=== PATIENT | female | born 1985 | race Caucasian/White ===

== ENCOUNTER 2024-08-16 00:02 | Day surgery (SDC) | payer OTHER, SELFPAY ==
[2024-08-05 16:14] VITALS: BMI 20.9
--- NOTE | 2024-08-05 16:31 | PC.NURSE ---
Report to the Outpatient Waiting Room, entrance under the green pavilion located off [facility], at 0830 on 08-16-24. Planned Procedure Time: 1030.? Time changes happen often and if your time is changed the preop area will call you the afternoon before. - You and your visitor will be asked to self-screen and do not enter if you have any COVID symptoms. Please call surgeon if you need to reschedule. - A mask is optional within the hospital at this time. Patients may have clear liquids (water, carbonated beverages, clear teas, apple juice) until 3 hours prior to surgery with a maximum of 20 ounces. 0730 - No food from midnight until time of surgery and no smoking, or chewing tobacco (or any form of nicotine). No chewing gum, candy or mints. - Infants may have breast milk until 4 hours before surgery, formula 6 hours prior to surgery. - Children will be allowed to drink immediately following surgery.? If applicable, please bring a bottle or sippy cup to assist with drinking. Juice, water, soda, and popsicles are readily available.? For infants on formula, please bring formula the day of surgery.? Pacifiers are allowed. Take only the following medications with a SIP of water on the morning of surgery: control DO NOT STOP ANY OF YOUR OTHER PRESCRIPTION MEDICATIONS PRIOR TO SURGERY EXCEPT THE FOLLOWING Hold all vitamins and supplements for 3 days per anesthesiologist. Medications to discontinue per physician: Dequan Date to take last dose: Per Dr. Wiggins (He told her 2 weeks prior to surgery) Please no make-up, nail english, hairspray, perfume, deodorant, or body powder the day of surgery.? No jewelry (including any body piercings) or valuables the day of surgery, leave them at home.? Please take a shower or bath the night before, or the morning of, surgery with an antibacterial soap.? Wear comfortable, loose fitting clothing.? Children are encouraged to wear pajamas. - Jewelry must be removed prior to entering the operating room.? Rings and piercings that are not removed may be cut off. - The hospital will not accept responsibility for valuables.? - Please leave all valuables, including medications, at home the day of surgery. If you are going home after surgery, a licensed box truck driver must drive you home.? - NO public transportation without another adult if you receive anesthesia. - We recommend that an adult stay with you for 24 hours following discharge. - We also recommend that you do not drive, make important decision, drink alcoholic beverages, or take any drugs that were not prescribed by your health care provider for at least 24 hours after your discharge time. For Pediatric surgeries, we recommend two adults accompany the child home. Follow any additional instructions given to you from your surgeon. Telephone instructions given to Shayla Saunders and asked if any additional questions and then verbalized understanding. Patient advised to call surgeon office or pre surgery nurse liaison [phone] if any additional questions.
[2024-08-16] VITALS (12 sets, daily range): BP systolic 95–142; BP diastolic 50–90; PULSE 67–93; RESP 12–18; TEMP 36.1–36.9; O2SAT 94–100; BMI 21.3
--- OUTSIDE RECORDS SUMMARY | 2024-08-16 00:05 | XMS_ITS | Data Portability ---
Author Organization PHIL Emily [facility]EIR[facility] Address [address] [place] [address] Care Team Providers Care Marketing Analytics Manager Name Role Phone CORY REYES Primary Care Provider Assessment No assessment recorded. Plan of Treatment Reminders Order Date Submit Date Provider Last Modified By Organization Details Last Modified Time Details Appointments None recorded. Lab CBC 2020 021 KVNG SUMMERS, Trina Squires, [facility] [address], [place], [address], 08:21:01 amylase + lipase, serum 2020 021 KVNG SUMMERS, Trina Squires, [facility] [address], [place], [address], 08:21:02 lipid panel, serum 2020 021 KVNG SUMMERS, Trina hansa Squires, [facility] [address], [place], [address], 07:10:22 CMP, serum or plasma 2020 021 KVNG SUMMERS, Trina hansa Squires, [facility] [address], [place], [address], 07:10:20 CBC 2020 021 KVNG SUMMERS, Trina hansa Squires, [facility] [address], [place], [address], 1 07:10:21 TSH + free T4, serum 2020 [facility], [address], [address], [place], [address], 1 07:10:20 Referral medical massage 2019 020 ssander Not available 0 15:20:50 Procedures stress echocardio gram (PROC) 2020 [facility], [address] [place], [address], 1 14:57:48 Surgeries None recorded. Imaging CT, abdomen + pelvis, w/o contrast - STAT.... 2020 [facility], [address] [place] [address] [place], [address], 1 08:26:32 Medication Orders Cipro 500 mg tablet 2019 020 [facility], [address] [place] [address], [address], 0 14:48:49 Tamiflu 75 mg capsule 2019 020 [facility], [address] [place] [address], [address], 0 14:49:36 Patient TargetsNo targets recorded. Patient Instructions Encounter Date Encounter Id Patient Instructions Last Modified By Organization Details Last Modified Time 07/02/2019 [id number] Acute Sinusitis: Care Instructions [email or web address] Not available 07/02/2019 16:40:00 03/24/2020 [id number] influenza (flu) vaccine: care instructions [email or web address] Not available 03/24/2020 18:44:53 Reason for Referral Medical Massage for Muscle s pasm of thoracic back thoracic back pain Referring Physician: Cory Reyes, Family Medicine, Encounter Date: 09/25/2019 Results Created Date Observation Date Name Description Value Unit Range Abnormal Flag Note LastModifiedBy Organization Detail LastModifiedTime 08/28/19 21 08/29/2020 TSH + free T4, serum TSH 2.420 uIU/m L 0.450- 4.500 Not Available [facility] ([facility]) [address] [place], [address], 08/29/2020 07:10:20 08/28/19 21 08/29/2020 TSH + free T4, serum T4,free(dire ct) 1.36 NG/dL 0.82-1 .77 Not Available [facility] ([facility]) [address] [place], [address], 08/29/2020 07:10:20 08/28/19 21 08/29/2020 CMP, serum or plasm a glucose 92 mg/dL 65-99 Not Available [facility] ([facility]) [address] [place], [address], 08/29/2020 07:10:20 08/28/1908/29/2020 CMP, serum or plasm a BUN 11 mg/dL 6-20 Not Available [facility] ([facility]) [address] [place], [address], 08/29/2020 07:10:20 08/28/1908/29/2020 CMP, serum or plasm a creatinine 0.77 mg/dL 0.57-1 .00 Not Available [facility] ([facility]) [address] [place], [address], 08/29/2020 07:10:20 08/28/1908/29/2020 CMP, serum or plasm a eGFR if nonafricn AM 100 mL/mi n/1.7 3 >59 Not Available [facility] ([facility]) [address] [place], [address], 08/29/2020 07:10:20 08/28/19 21 08/29/2020 CMP, serum or plasm a eGFR if africn AM 115 mL/mi n/1.7 3 >59 Not Available [facility] ([facility]) [address] [place], [address], 08/29/2020 07:10:20 08/28/19 21 08/29/2020 CMP, serum or plasm a BUN/creatini ne ratio 14 9-23 Not Available [facility] ([facility]) [address] [place], [address], 08/29/2020 07:10:20 08/28/19 21 08/29/2020 CMP, serum or plasm a sodium 143 mmol/ L 134-14 4 Not Available [facility] ([facility]) [address] [place], [address], 08/29/2020 07:10:20 08/28/19 21 08/29/2020 CMP, serum or plasm a potassium 4.6 mmol/ L 3.5-5. 2 Not Available [facility] ([facility]) [address] [place], [address], 08/29/2020 07:10:20 08/28/19 21 08/29/2020 CMP, serum or plasm a chloride 103 mmol/ L 96-106 Not Available [facility] ([facility]) [address] [place], [address], 08/29/2020 07:10:20 08/28/19 21 08/29/2020 CMP, serum or plasm a carbon dioxide, total 26 mmol/ L 20-29 Not Available [facility] ([facility]) [address] [place], [address], 08/29/2020 07:10:20 08/28/19 21 08/29/2020 CMP, serum or plasm a calcium 9.6 mg/dL 8.7-10 .2 Not Available [facility] ([facility]) [address] [facility] [place], [address], 08/29/2020 07:10:20 08/28/1908/29/2020 CMP, serum or plasm a protein, total 7.2 g/dL 6.0-8. 5 Not Available [facility] ([facility]) [address] [facility] [place], [address], 08/29/2020 07:10:20 08/28/19 21 08/29/2020 CMP, serum or plasm a albumin 4.7 g/dL 3.8-4. 8 Not Available [facility] ([facility]) [address] [facility], [place], [address], 08/29/2020 07:10:20 08/28/1908/29/2020 CMP, serum or plasm a globulin, total 2.5 g/dL 1.5-4. 5 Not Available [facility] ([facility]) [address] [place], [address], 08/29/2020 07:10:20 08/28/1908/29/2020 CMP, serum or plasm a A/G ratio 1.9 1.2-2. 2 Not Available [facility] ([facility]) [address] [place], [address], 08/29/2020 07:10:20 08/28/1908/29/2020 CMP, serum or plasm a bilirubin, total 0.3 mg/dL 0.0-1. 2 Not Available [facility] ([facility]) [address] [facility] [place], [address], 08/29/2020 07:10:20 08/28/1908/29/2020 CMP, serum or plasm a alkaline phosphatase 62 IU/L 39-117 Not Available [facility] ([facility]) [address] [place], [address], 08/29/2020 07:10:20 08/28/19 21 08/29/2020 CMP, serum or plasm a AST (SGOT) 22 IU/L 0-40 Not Available [facility] ([facility]) [address] [facility] [place], [address], 08/29/2020 07:10:20 08/28/19 21 08/29/2020 CMP, serum or plasm a ALT (SGPT) 15 IU/L 0-32 Not Available [facility] ([facility]) [address] [facility], [place], [address], 08/29/2020 07:10:20 08/28/19 21 08/29/2020 CBC WBC 5.8 x10e3 /uL 3.4-10 .8 Not Available [facility] ([facility]) [address] [facility], [place], [address], 08/29/2020 07:10:21 08/28/19 21 08/29/2020 CBC RBC 4.74 x10e6 /uL 3.77-5 .28 Not Available [facility] ([facility]) [address] [place], [address], 08/29/2020 07:10:21 08/28/19 21 08/29/2020 CBC hemoglobin 14.7 g/dL 11.1-1 5.9 Not Available [facility] ([facility]) [address] [place], [address], 08/29/2020 07:10:21 08/28/1908/29/2020 CBC hematocrit 43.1 % 34.0-4 6.6 Not Available [facility] ([facility]) [address] [place], [address], 08/29/2020 07:10:21 08/28/19 21 08/29/2020 CBC MCV 91 fL 79-97 Not Available [facility] ([facility]) [address] [place], [address], 08/29/2020 07:10:21 08/28/19 21 08/29/2020 CBC MCH 31.0 pg 26.6-3 3.0 Not Available [facility] ([facility]) [address] [facility] [place], [address], 08/29/2020 07:10:21 08/28/19 21 08/29/2020 CBC MCHC 34.1 g/dL 31.5-3 5.7 Not Available [facility] ([facility]) [address] [facility] [place], [address], 08/29/2020 07:10:21 08/28/19 21 08/29/2020 CBC RDW 11.6 % 11.7-1 5.4 below low normal Not Available [facility] ([facility]) [address] [place], [address], 08/29/2020 07:10:21 08/28/19 21 08/29/2020 CBC platelets 227 x10e3 /uL 150-45 0 Not Available [facility] ([facility]) [address] [place], [address], 08/29/2020 07:10:21 08/28/19 21 08/29/2020 CBC NRBC CAT DOG OR OTHER PET GROOMER Not Available [facility] ([facility]) [address] [place], [address], 08/29/2020 07:10:21 08/28/19 21 08/29/2020 lipid panel , serum cholesterol, total 255 mg/dL 100-19 9 above high normal Not Available [facility] ([facility]) [address] [place], [address], 08/29/2020 07:10:22 08/28/19 21 08/29/2020 lipid panel , serum triglyceride s 142 mg/dL 0-149 Not Available [facility] ([facility]) [address] [place], [address], 08/29/2020 07:10:22 08/28/19 21 08/29/2020 lipid panel , serum HDL cholesterol 58 mg/dL >39 Not Available [facility] ([facility]) [address] [facility], [place], [address], 08/29/2020 07:10:22 08/28/19 21 08/29/2020 lipid panel , serum VLDL cholesterol nadine 26 mg/dL 5-40 Not Available [facility] ([facility]) [address] [facility], [place], [address], 08/29/2020 07:10:22 08/28/19 21 08/29/2020 lipid panel , serum LDL chol calc ([facility]) 171 mg/dL 0-99 above high normal Not Available [facility] ([facility]) [address] [facility], [place], [address], 08/29/2020 07:10:22 08/28/19 21 08/29/2020 lipid panel , serum comment: CAT DOG OR OTHER PET GROOMER Not Available [facility] ([facility]) [address] [facility], [place], [address], 08/29/2020 07:10:22 08/28/19 21 08/29/2020 cardi ovasc ular asses sment panel , serum interpretati on Note Suppl petey pineda is avail able. Not Available [facility] ([facility]) [address] [facility], [place], [address], 08/29/2020 07:10:22 08/28/19 21 08/29/2020 cardi ovasc ular asses sment panel , serum pdf . Not Available [facility] ([facility]) [address] [facility], [place], [address], 08/29/2020 07:10:22 09/11/19 21 09/11/2020 CBC WBC 6.6 x10e3 /uL 3.4-10 .8 Not Available [facility] ([facility]) [address] [facility], [place], [address], 09/11/2020 08:21:01 09/11/1909/11/2020 CBC RBC 4.66 x10e6 /uL 3.77-5 .28 Not Available [facility] ([facility]) [address] [facility], [place], [address], 09/11/2020 08:21:01 09/11/19 21 09/11/2020 CBC hemoglobin 14.4 g/dL 11.1-1 5.9 Not Available [facility] ([facility]) [address] [place], [address], 09/11/2020 08:21:01 09/11/19 21 09/11/2020 CBC hematocrit 42.2 % 34.0-4 6.6 Not Available [facility] ([facility]) [address] [facility], [place], [address], 09/11/2020 08:21:01 09/11/1909/11/2020 CBC MCV 91 fL 79-97 Not Available [facility] ([facility]) [address] [facility], [place], [address], 09/11/2020 08:21:01 09/11/1909/11/2020 CBC MCH 30.9 pg 26.6-3 3.0 Not Available [facility] ([facility]) [address] [place], [address], 09/11/2020 08:21:01 09/11/19 21 09/11/2020 CBC MCHC 34.1 g/dL 31.5-3 5.7 Not Available [facility] ([facility]) [address] [place], [address], 09/11/2020 08:21:01 09/11/19 21 09/11/2020 CBC RDW 11.7 % 11.7-1 5.4 Not Available [facility] ([facility]) [address] [facility], [place], [address], 09/11/2020 08:21:01 09/11/19 21 09/11/2020 CBC platelets 202 x10e3 /uL 150-45 0 Not Available [facility] ([facility]) [address] [facility], [place], [address], 09/11/2020 08:21:01 09/11/19 21 09/11/2020 CBC NRBC CAT DOG OR OTHER PET GROOMER Not Available [facility] ([facility]) [address] [facility], [place], [address], 09/11/2020 08:21:01 09/11/19 21 09/11/2020 amyla se + lipas e, serum amylase 79 U/L 31-110 Not Available [facility] ([facility]) [address] [facility], [place], [address], 09/11/2020 08:21:01 09/11/19 21 09/11/2020 amyla se + lipas e, serum lipase 32 U/L 14-72 Not Available [facility] ([facility]) [address] [facility], [place], [address], 09/11/2020 08:21:01 09/11/19 21 09/10/2020 stres s echoc ardio gram (PROC ) No observ ation record ed. dtlexi Garcia [facility] (Radiology) [address] [place] [address] [place], [address], 09/10/2020 16:08:34 09/16/19 21 09/15/2020 CT, abdom en + pelvi s, w/o contr ast No observ ation record ed. KVNG Garcia [facility] (Radiology) [address] [place], [address], 09/15/2020 19:11:36 Result Notes None recorded. Problems Name Problem SNOMED Code Status Onset Date Resolution Date Notes Provider Name and Address Organization Details Recorded Time Left lower quadrant pain 261727562 Active 018 Marianna Ayon MA null, [place] - [place] 0 14:48:35 Eczema 72470396 Active Marianna Ayon MA [place], [place] - [place] 0 14:48:35 Problem Notes None recorded. Procedures Surgical History Date Name Laterality Status Provider Name and Address Organization Details Recorded Time 8 colonoscopy completed Marianna Ayon MA [place] - [place] 08/27/2020 15:41:22 Imaging Results Imaging Date Name Status LastModified by Organization Details LastModified Time 09/10/2020 stress echocardiogram (PROC) completed dtlexi Mcfadden (Radiology) [address] [place], [address], 09/10/2020 16:08:34 09/15/2020 CT, abdomen + pelvis, w/o contrast completed KVNG Mcfadden (Radiology) [address] [place], [address], 09/15/2020 19:11:36 Procedure Notes None recorded. Medical Equipment None Reported. Allergies No known drug allergies Medications Name Sig Start Date Stop Date Status Note LastModified by Organization Details LastModified Time polyethylen e glycol 3350 17 gram oral powder packet Take 17 g by oral route. 09/24 completed Not Available Not Available Not Available atorvastati n 10 mg tablet Take 1 tablet every day by oral route for 90 days. 09/10 completed Not Available Not Available Not Available fluconazole 150 mg tablet 09/24 completed Not Available Not Available Not Available hydrocodone 5 mg-acetamin ophen 325 mg tablet 08/29 completed Not Available Not Available Not Available ondansetron HCl 8 mg tablet Take 1 tablet every 8 hours by oral route for 2 days. 09/06 completed Not Available Not Available Not Available fluconazole 200 mg tablet Take 1 tablet every 72 hours by oral route. 09/24 completed Not Available Not Available Not Available metronidazo le 0.75 % (37.5 mg/5 gram) vaginal gel 09/24 completed Not Available Not Available Not Available ciprofloxac in 500 mg tablet Take 1 tablet every 12 hours by oral route for 10 days. 09/24 completed Not Available Not Available Not Available doxycycline monohydrate 100 mg tablet 09/24 completed Not Available Not Available Not Available oxycodone-a cetaminophe n 5 mg-325 mg tablet 08/27 completed Not Available Not Available Not Available tamsulosin 0.4 mg capsule 09/06 completed Not Available Not Available Not Available benzonatate 100 mg capsule Take 1 capsule 3 times a day by oral route for 10 days. 08/27 completed Not Available Not Available Not Available hydrocodone 7.5 mg-acetamin ophen 325 mg tablet 08/29 completed Not Available Not Available Not Available cephalexin 500 mg capsule 2020 active Not Available Not Available Not Avai lable oseltamivir 75 mg capsule Take 1 capsule every day by oral route for 10 days. 09/24 completed Not Available Not Available Not Available hydrocortis one 2.5 % topical cream APPLY A THIN LAYER TO THE AFFECTED AREA(S) BY TOPICAL ROUTE 2 TIMES PER DAY 09/06 completed Not Available Not Available Not Available levofloxaci n 500 mg tablet 09/06 completed Not Available Not Available Not Available levofloxaci n 750 mg tablet Take 1 tablet every day by oral route for 5 days. 09/24 completed Not Available Not Available Not Available methylpredn isolone 4 mg tablets in a dose pack Take 1 tablet by oral route as directed. 08/27 completed Not Available Not Available Not Available amoxicillin 875 mg-potassiu m clavulanate 125 mg tablet Take 1 tablet every 12 hours by oral route for 10 days. active Not Available Not Available No t Available NuvaRing 0.12 mg-0.015 mg/24 hr vaginal 09/24 completed Not Available Not Available Not Available azithromyci n 500 mg tablet Take 1 tablet every day by oral route for 3 days. 08/27 completed Not Available Not Available Not Available magnesium citrate 100 mg tablet 09/24 completed Not Available Not Available Not Available Afluria Quad 8179-2510 60 mcg/0.5 mL intramuscul ar suspension 09/06 completed Not Available Not Available Not Available Flucelvax Quad (PF) 60 mcg (15 mcg x 4)/0.5 mL IM syringe 04/24 completed Not Available Not Available Not Available ID NOW COVID-19 Test Kit TEST DIRECTED 08/27 completed Not Available Not Available Not Available Vitals Date Recorded Body height Body mass index (BMI) Body weight Oxygen saturation Oxygen saturation in Arterial blood by Pulse oximetry Heart rate Body temperature Systolic blood pressure Diastolic blood pressure Provider Name and Address Organization Details Last Updated DateTime 0 160.02 cm 22.5 kg/m2 12808.2 3 g 96 % 96 % 92 /min 98.6 [degF] 112 mm[Hg] 74 mm[Hg] Leslie Bullard MA [facility] 0 16:31:01 Date Recorded Body height Provider Name an d Address Organization Details Last Updated DateTime 09/25/2019 160.02 cm Marianna Ayon MA [facility] 09/25/19 20 14:48:12 Date Recorded Body height Body temperature Oxygen saturation Oxygen saturation in Arterial blood by Pulse oximetry Heart rate Body mass index (BMI) Body weight Systolic blood pressure Diastolic blood pressure Provider Name and Address Organization Details Last Updated DateTime 1 160.02 cm 97.8 [degF] 97 % 97 % 80 /min 25.6 kg/m2 55602.7 g 120 mm[Hg] 82 mm[Hg] Marianna Ayon MA [facility] 1 15:44:32 Date Recorded Body height Body mass index (BMI) Body weight Body temperature Oxygen saturation Oxygen saturation in Arterial blood by Pulse oximetry Heart rate Systolic blood pressure Diastolic blood pressure Provider Name and Address Organization Details Last Updated DateTime 1 160.02 cm 25.4 kg/m2 64684.8 1 g 98.2 [degF] 97 % 97 % 98 /min 98 mm[Hg] 62 mm[Hg] Marianna Ayon MA [facility] 1 12:35:20 Social History Question Answer Notes LastModified by Organizat ion Details LastModified Time Tobacco Smoking Status Never Smoker Sayra Toscano MA [facility], [facility] 03/13/2019 16:01:03 What Is Your Level Of Alcohol Consumption? Occasional Information not available 08/27/2020 Are You Blind Or Do You Have Difficulty Seeing? No Information not available 08/27/2020 What Is Your Level Of Caffeine Consumption? Moderate Information not available 08/27/2020 In The 14 Days Before Symptom Onset, Have You Had Close Contact With A Laboratory-confir med COVID-19 While That Case Was Ill? No Information not available 08/27/2020 In The 14 Days Before Symptom Onset, Have You Had Close Contact With A Person Who Is Under Investigation For COVID-19 While That Person Was Ill? No Information not available 08/27/2020 Have You Been To An Area Known To Be High Risk For COVID-19? No Information not available 08/27/2020 Are You Currently Employed? Yes Information not available 08/27/2020 Are You Deaf Or Do You Have Serious Difficulty Hearing? No Information not available 08/27/2020 What Type Of Diet Are You Following? REGULAR Information not available 08/27/2020 Do You Or Have You Ever Used E-cigarettes Or Vape? 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 Yes Information not available 08/27/2020 What Was The Date Of Your Most Recent Tobacco Screening? 08/27/2020 Information not available 08/27/2020 What Is Your Relationship Status? Information not available 08/27/2020 Do You Use Your Seat Belt Or Car Seat Routinely? Yes Information not available 08/27/2020 Do You Have Smoke And Carbon Monoxide Detectors In Your Home? Yes Information not available 08/27/2020 Are You Passively Exposed To Smoke? No Information no t available 08/27/2020 Do You Or Have You Ever Used Smokeless Tobacco? Never Used Smokeless Tobacco Information not available 03/13/2019 How Much Tobacco Do You Smoke? No Information not available 03/13/2019 Do You Feel Stressed (tense, Restless, Nervous, Or Anxious, Or Unable To Sleep At Night)? [id number] Information not available 08/27/2020 Do You Use Any Illicit Or Recreational Drugs? No Information not available 08/27/2020 Do You Use Sunscreen Routinely? Yes Information not available 08/27/2020 Has Tobacco Cessation Counseling Been Provided? No Information not available 08/27/2020 Do You Or Have You Ever Used Any Other Forms Of Tobacco Or Nicotine? No Information not available 08/27/2020 Sex: Unknown Functional Status Question Answer Note LastModified by Organization D etails LastModified Time Are you able to care for yourself? Yes Information n ot available 08/27/2020 What is your exercise level? None Information not available 08/27/2020 Mental Status None recorded. Family History Relationship Description Onset Age of this Age Resolved Age Notes LastModified by Organization Details LastModified Time Father No current problems or disability [email or web address] Not available 02/14 16:01:00 Mother No current problems or disability [email or web address] Not available 02/14 16:01:00 Medical History Condition Response Coronary Artery Disease N Other N Atrial Fibrillation N High Blood Pressure N Thyroid Problems N Kidney or Bladder Problems N Depression N COPD N Blood Clots N GI Problems N Skin Problems N Eating Disorder N Anemia N Heart Attack (DC) N Diabetes N Anxiety Disorder N Muscle, Joint, or Bone Problems N Seizures/Epilepsy N Acid Reflux (GERD) N Cancer N Stroke N Allergies N Asthma N ADHD N Substance Abuse N High Cholesterol N Hepatitis N Liver Disease N Schizophrenia N Headaches N Osteoporosis N Heart Failure N Gynecological History Statement/Question Response Date of Last Pap Smear Date of LMP 08/26/2020 LMP Definite Obstetrics History GPAL:G 0 P 0 0 0 0 Immunizations Vaccine Type Date Status Note Provider Nam e and Address Organization Details Recorded Time Influenza, split virus, quadrivalent, preservative 6 completed Not Available [facility] 06/01/2019 02:32:32 Influenza, split virus, quadrivalent, PF 9 completed Not Available [facility] 06/01/2019 02:46:43 Influenza, split virus, quadrivalent, preservative 0 completed DERICK Apar[place], [place] - [facility] 03/24/2020 18:10:49 Past Encounters Encounter ID Performer Location Encounter Start Date Encounter Closed Date Diagnosis/Indication Diagnosis SNOMED-CT Code Diagnosis ICD10 Code Diagnosis Note [id number] Cory Reyes PA-C [facility] [address] [place] [address] 02/19/2016 15:07:14 02/19/2016 16:25:21 Eczema 04410306 L30.9 [id number] Sayra Toscano MA [facility] [address] [place] [address] 08/29/2017 18:24:45 08/29/2017 19:36:39 Left lower quadrant pain 620238507 R10.32 [id number] Cory Reyes PA-C [facility] [address] [place] [address] 09/06/2017 09:50:52 09/06/2017 11:47:29 Mixed hyperlipidemia 694900144 E78.2 [id number] Cory Reyes PA-C [facility] [address] [place] [address] 04/24/2018 14:27:10 04/24/2018 15:26:56 Upper respiratory infection 97149654 J01.01 [id number] Cory Reyes PA-C [facility] [address] [place] [address] 03/13/2019 15:44:08 03/13/2019 16:32:46 Administration of influenza vaccine 65240510 Z23 consent signed Recurrent acute tonsillitis [id number] J03.01 [id number] Leslie Bullard [facility] [address] [place] [address] 07/02/2019 16:24:03 07/02/2019 17:11:44 Acute maxillary sinusitis [id number] J01.00 [id number] Cory Reyes PA-C [facility] [address] [place] [address] 09/25/2019 10:59:17 09/25/2019 15:20:50 Muscle spasm of thoracic back [id number] 03302 M62.913 [id number] Marianna Ayon MA [facility] [address] [place] [address] 03/24/2020 17:51:51 03/25/2020 04:18:25 Administration of influenza vaccine [id number] Z23 consent signed [id number] Cory Reyes PA-C [facility] [address] [place] [address] 08/27/2020 15:35:47 08/31/2020 10:08:31 Mixed hyperlipidemia [id number] E78.2 Atypical angina [id number] 2 I20.8 [id number] Cory Reyes PA-C [facility] [address] [place] [address] 09/10/2020 12:31:25 09/10/2020 14:35:10 Right upper quadrant pain [id number] R10.11 Health Concerns Section Related Observation LastModified by Organization Detai ls LastModified Time None Recorded Concern Status LastModified by Organization Details LastModified Time None Recorded Advance Directives Directive None Recorded Payers Encounter Date Sequence Insurance Name Policy Number Policy Regalado Covered Member ID Regalado Member ID Guarantor Name 07/02/2019 1 [employer] - CHOICE (POS II) [id number] David Saunders [id number] [facility] 09/25/2019 1 [employer] - CHOICE (POS II) [id number] David Saunders [id number] David Andre 03/24/2020 1 [employer] - CHOICE (POS II) [id number] David Saunders [id number] 2 David Saunders 08/27/2020 1 [employer] - CHOICE (POS II) [id number] David Saunders [id number] David Andre 09/10/2020 1 [employer] - CHOICE (POS II) [id number] David Saunders [id number] David Saunders Notes Date Note Type Note Provider Name and Address Organization Details Recorded Time 07/02/2019 text/html uri symptoms and sinus congestion Leslie Bullard MA [facility], [facility] 07/02/2019 17:25:15 09/25/2019 text/html back spasm..thor acic back.. Cory Reyes PA-C Attn: [address]ing[address] [place], [address], [facility] [place] [place] 09/25/2019 14:57:48 08/27/2020 text/html The patient pres ents to the clinic with complaints of episodes of palpitations and tachycardia. They are infrequent, occuring about 1/month. It is associated with chest pain, cough and pressure. The episodes last about a minute and then resolve. She says her watch told her her heart rate was 183bpm during her most recent episode, Monday. She says her heart rate has been faster than normal this past week. She also complains of dizziness, SOB, and cough that occurs with the chest pain. On Monday, she had numbness and tingling in her upper extremity and hands that resolved after a couple minutes. Her mother has mitral valve prolapse, with significant family history for heart attacks and stents. She denies any patterns to the episodes. She has hyperlipidemia but does not take medications. She previously had a 24-hr EKG holter test that came back negative. She had COVID in May but has recovered. She has a history of acid reflux in high school. She further denies recent sickness, fever, chills, N/V, or bowel changes. Cory Reyes PA-C Attn: [address]ing[address] [place], [address], [facility] [place] [place] 08/27/2020 16:25:37 09/10/2020 text/html Started lipitor 2 weeks ago and is now having swelling/bloating under right rib. Hx of constipation but it has worsened where she needed to take miralax multiple times during one day. No nausea or vomiting. Feels uncomfortable and bloated.. can't sleep on right side. Stopped taking it 4-5 days ago and not feeling better. Constipation is back baseline but bloating and RUQ pain is still present. No known gallbladder problems. No diet, exercise, or stress changes recently. Denies muscle pain/aches. Cory Reyes PA-C Attn: Accounting[address] [place], [address], [facility] [place] [place] 09/10/2020 12:59:48 OBGyn Episode No OBEpisode recorded.
--- OUTSIDE RECORDS SUMMARY | 2024-08-16 00:05 | XMS_ITS | Clinical Summary ---
Author Organization [facility] Address [address] [place] [address] Care Team Providers Care Leadership Program Intern Name Role Phone Yohannes Gonsales MD Primary Care Provider [phone] Valerie Yudi Luong EMS DRIVER Unavailable [phone] Shayla Bermudez NP Unavailable Unavailable Medications polyethylene glycol 17 GM/SCOOP powder Take 17 g by mouth daily. Active atorvastatin 10 MG tablet 1 Active ferrous sulfate dried CR 143 (45 Fe) MG Tab CR tablet Take by mouth daily. Active methylPREDNISol one, JOEY, 4 MG tablet 1 Active levonorgestrel (MIRENA, 52 MG,) 20 MCG/24HR IUD 1 Intra Uterine Device by Intrauterine route once. Active vitamin D2, ergocalciferol, (VITAMIN D, ERGOCALCIFEROL, ) 24205 UNITS capsule Take 50,000 Units by mouth every 7 days. Active Encounters Date Type Department Care Team Description 06/26/2024 2:11 PM WHISKEY FILTERER - 06/26/2024 11:59 PM [facility] Hospital Encounter [facility] [address] [place] [address] Dilcia Crouch NP Discharge Disposition: Home or Self Care (Routine Discharge) 06/26/2024 Travel from Last 3 Months Family History Medical History Relation Comments Arthritis Other Dementia Other Diabetes Other Hypertension Other Relation Status Comments Other Alive Social History Tobacco Use Types Packs/Day Years Used Date Smoking Tobacco: Never Smokeless Tobacco: Never Alcohol Use Standard Drinks/Week Comments Yes 0 (1 standard drink = 0.6 oz pur e alcohol) occasional Comments No Sex and Gender Information Value Date Recorded Sex Assigned at Female 06/26/2024 2:10 PM WHISKEY FILTERER Legal Sex Female 12:37 PM CDT Gender Identity Not on file Sexual Orientation Not on file Last Filed Vital Signs Vital Sign Reading Time Taken Comments Blood Pressure 122/78 12/15/2020 1:58 PM CDT Pulse 80 12/15/2020 1:58 PM CDT Temperature - - Respiratory Rate 18 12/15/2020 1:58 PM CDT Oxygen Saturation 99% 12/15/2020 1:58 PM CDT Inhaled Oxygen Concentration - - Weight 66.8 kg (147 lb 3.2 oz) 12/15/2020 1:58 P M CDT Height 157.5 cm (5' 2 ) 12/15/2020 1:58 PM CDT Body Mass Index 26.92 12/15/2020 1:58 PM CDT Plan of Treatment Health Maintenance Due Date Last Done Comments Cervical Cancer Screening Pa p Smear (Age 30 to 64) Every 3 Years 1984 Annual Physical 1987 Hepatitis C 2002 DTaP, Tdap and Td Vaccines ( 1 - Tdap) 2003 Hepatitis B Vaccines (1 of 3 - 19+ 3-dose series) 2003 Cervical Cancer Screening Pa p with HPV Testing (Age 30 to 64) Every 5 Years 2014 Cervical Cancer Screening wi th HPV 2014 COVID-19 Vaccine (2023-2 5 season) 2024 05/24/2021, 11/04/2020, 10/14/2020 Mammogram Screening 10/11/2025 10/12/2023 HPV Vaccines Aged Out No longer eligi ble based on patient's age to complete this topic Meningococcal B Vaccine Aged Out No l onger eligible based on patient's age to complete this topic Meningococcal Vaccine Aged Out No marcio beti eligible based on patient's age to complete this topic Pneumococcal Vaccine: Pediatrics (0 to 5 Years) and At-Risk Patients (6 to 64 Years) Aged Out No longer eligible b ased on patient's age to complete this topic RSV Immunizations Under 20 Months Aged Out No longer eligible b ased on patient's age to complete this topic Procedures Procedure Name Priority Date/Time Associated Diagnosis Comments US PELVIC NON OB COMP TA+TV Routine 06/26/2024 3:15 PM WHISKEY FILTERER Irregular menses MG SCREENING W [place] DIGI Routine 10/12/2023 8:45 AM CDT Visit for screening mammogram from Last 3 Months or Most Recently Relevant to Health Maintenance Results * US PELVIC NON OB COMP TA+TV (06/26/2024 3:15 PM WHISKEY FILTERER) Anatomical Region Laterality Modality Pelvis Ultrasound 06/27/2024 10:2 4 AM WHISKEY FILTERER Impressions 06/27/2024 10:28 AM WHISKEY FILTERER IMPRESSION: 1. Enlarging 5.6 cm fibroid, anterior aspect of body of uterus, possibly submucosal in location. Ordered By: DILCIA CROUCH Interpreted By: Pratik Rodriguez MD, 06/27/2024 10:24 AM Narrative 06/27/2024 10:28 AM WHISKEY FILTERER [address] [place] [address] EXAMINATION: Complete pelvic sonogram (non-obstetric) with transvaginal ultrasound CLINICAL HISTORY: 39 years female with history of irregular menses LMP= irregular menstrual cycle with bleeding in the last 5 weeks. UPT unknown COMPARISON: 11/11/2021. CT abdomen/pelvis on 11/12/2021. TECHNIQUE: Ultrasound examination of the pelvis was performed utilizing transabdominal and transvaginal approach to assess grayscale appearance, color doppler flow, and spectral waveform characteristics. FINDINGS: Uterus: 9.4 x 7.4 x 6.7 cm. Approximately 4.8 x 3.4 x 5.6 cm heterogeneous mass in the anterior body of uterus, with possible submucosal location. Endometrial stripe: Not well visualized. Cervix: Normal. Right ovary: 1.4 x 1.1 x 1.7 cm. Normal echogenicity. Normal blood flow and spectral analysis. No masses or pathologic cysts. Left ovary: 1.7 x 0.7 x 1.4 cm. Normal echogenicity. Normal blood flow and spectral analysis. No masses or pathologic cysts. Other findings: No free fluid is seen within the pelvis. Visible bladder not adequately distended. Procedure Note Pratik Rodriguez MD - 06/27/2024 [facility] [address] [place] [address] EXAMINATION: Complete pelvic sonogram (non-obstetric) with transvaginalultrasound CLINICAL HISTORY: 39 years female with history of irregular menses LMP= irregular menstrual cycle with bleeding in the last 5 weeks. UPTunknown COMPARISON: 11/11/2021. CT abdomen/pelvis on 11/12/2021. TECHNIQUE: Ultrasound examination of the pelvis was performed utilizingtransabdominal and transvaginal approach to assess grayscale appearance,color doppler flow, and spectral waveform characteristics. FINDINGS: Uterus: 9.4 x 7.4 x 6.7 cm. Approximately 4.8 x 3.4 x 5.6 cm heterogeneousmass in the anterior body of uterus, with possible submucosal location. Endometrial stripe: Not well visualized. Cervix: Normal. Right ovary: 1.4 x 1.1 x 1.7 cm. Normal echogenicity. Normal blood flowand spectral analysis. No masses or pathologic cysts. Left ovary: 1.7 x 0.7 x 1.4 cm. Normal echogenicity. Normal blood flow andspectral analysis. No masses or pathologic cysts. Other findings: No free fluid is seen within the pelvis. Visible bladder not adequately distended. IMPRESSION: 1. Enlarging 5.6 cm fibroid, anterior aspect of body of uterus, possiblysubmucosal in location. Ordered By: DILCIA CROUCH Interpreted By: Pratik Rodriguez MD, 06/27/2024 10:24 AM us Dilcia Crouch SUPERVISOR POST WAVE ULTRASOUND Fin al Result * MG SCREENING W [place] DIGI (10/12/2023 8:45 AM CDT) Anatomical Region Laterality Modality Breast Bilateral Mammography 10/12/2023 2:28 PM CDT Impressions 10/12/2023 2:29 PM CDT IMPRESSION: Moderately dense breasts. No mammographic evidence of malignancy. Recommendation: 1: Routine Screening Bilateral in 1 Year Assessment: ACR BI-RADS 2 - BENIGN FINDING(S) Ordered By: DILCIA CROUCH Interpreted By: Drake Castellano MD, 10/12/2023 2:28 PM Narrative 10/12/2023 2:29 PM CDT Examination: Digital screening mammogram with CAD. Clinical history: Asymptomatic patient presents for routine screening. Baseline. Comparison: None. Technique: Bilateral digital mammograms. The exam was interpreted with the use of a computer-aided detection (CAD) system. Additional 3-D tomosynthesis images were acquired. Tissue density: The breast tissue is heterogeneously dense. Findings: The breast tissue is heterogeneously dense. The dense tissue may obscure some lesions mammographically. Benign-appearing calcification noted. No suspicious mass, microcalcification or area of architectural distortion can be identified. From a mammographic standpoint, routine followup in one year would seem adequate. Dilcia Crouch SUPERVISOR POST WAVE MAMMO Fin al Result from Last 3 Months or Most Recently Relevant to Health Maintenance Insurance Care Teams Leadership Program Intern Relationship Specialty Start Date End Date Yohannes Gonsales MD [address] [place] [phone] PCP - General FAMILY PRACTICE 12/04/20 Yudi Padilla FNP [address] [place] [phone] Referring Physician NURSE PRACTITIONER 12/10/20 Shayla Bermudez NP [address] [place] [phone] EP Economic Specialist Nurse Practitioner [facility] 12/10/20
--- OUTSIDE RECORDS SUMMARY | 2024-08-16 00:05 | XMS_ITS | Clinical Summary ---
Author Organization [facility] [employer] Address [address] [place] [address] Care Team Providers Care Pricing Consultant Name Role Phone Tammy Jean MD Primary Care Provider Source Comments [facility],non-owned Affiliates and Associated Physician Practices is amultiple site organization consisting of ambulatory clinics and hospital sitesin [place], [place], [place] and [place]. This disclosure is being madepursuant to the Care Everywhere program and may not contain all information available regarding this patient. Last updated 18.[facility] [employer] Active Problems Problem Noted Date Diagnosed Date Other constipation 04/03/2015 Overview (08/14/2017): Linzess (developed diarrhea), fiber (worsening bloating/cramping), and probiotics. Currently using Miralax daily and daily probiotic, doing well with this with 1 BM daily. Abdominal pain 09/22/2014 Other specified abnormal findings of blood chemi stry 09/22/2014 Family History Medical History Relation Name Comments None Known Brother Status: Alive None Known Father Status: Alive Depression Maternal Grandfather Diabetes Maternal Grandfather Hearing Loss Maternal Grandfather Hearing Loss Maternal Grandmother Hypertension Mother Status: Alive None Known Sister 1 Status: Alive None Known Sister 2 Status: Alive Relation Name Status Comments Brother Father Maternal Grandfather Maternal Grandmother Mother Sister 1 Sister 2 Social History Tobacco Use Types Packs/Day Years Used Date Smoking Tobacco: Never Smokeless Tobacco: Never Alcohol Use Standard Drinks/Week Comments Yes 0 (1 standard drink = 0.6 oz pur e alcohol) Sex and Gender Information Value Date Recorded Sex Assigned at Not on file Gender Identity Not on file Sexual Orientation Not on file Last Filed Vital Signs Vital Sign Reading Time Taken Comments Blood Pressure 127/73 02/19/2015 3:10 PM CDT Pulse 81 02/19/2015 3:10 PM CDT Temperature 36.7 C (98 F) 02/19/2015 3:10 PM CDT Respiratory Rate 16 02/19/2015 3:10 PM CDT Oxygen Saturation - - Inhaled Oxygen Concentration - - Weight 61 kg (134 lb 6.4 oz) 02/19/2015 3:10 PM CDT Height 162.6 cm (5' 4 ) 02/19/2015 3:10 PM CDT Body Mass Index 23.07 02/19/2015 3:10 PM CDT Plan of Treatment Health Maintenance Due Date Last Done Comments MAMMOGRAM 1984 HIV SCREENING 1999 HEPATITIS C SCREENING 04/27/2002 DTAP/TDAP/TD VACCINES (1 - Tdap) 2003 HEPATITIS B VACCINE (1 of 3 - 19+ 3-dose series) 2003 LIPID TESTING 02/13/2020 02/12/2015 COVID-19 VACCINE (1 - 2023-2 5 season) 2024 INFLUENZA VACCINE (#1) 2024 DEPRESSION SCREENING 05/15/2024 ZOSTER VACCINE (1 of 2) 2034 HIB VACCINE Aged Out No longer eligi ble based on patient's age to complete this topic HPV VACCINE Aged Out No longer eligi ble based on patient's age to complete this topic MENINGOCOCCAL (Group B) VACC INE SHARED DECISION-MAKING Aged Out No longer eligibl e based on patient's age to complete this topic MENINGOCOCCAL GROUPS A/C/Y/W VACCINE Aged Out No longer eligible b ased on patient's age to complete this topic PNEUMOCOCCAL VACCINE Aged Out No long er eligible based on patient's age to complete this topic Procedures Procedure Name Priority Date/Time Associated Diagnosis Comments LIPID PROFILE Routine 02/12/2015 8:22 AM CDT from Last 3 Months or Most Recently Relevant to Health Maintenance Results * (ABNORMAL) LIPID PROFILE (02/12/2015 8:22 AM CDT) Cholesterol Total 233(H) 125 - 200 mg/dL [facility]) HDL 49 > OR = 46 mg/dL [facility]) Triglycerides 97 <150 mg/dL [facility] LDL Calculated 165(H) <130 mg/dL (calc) [facility] ([facility]) Comment: Desirable range <100 mg/dL for patients with CHD or diabetes and <70 mg/dL for diabetic patients with known heart disease. Chol/HDL Ratio 4.8 < OR = 5.0 (calc) [facility] ([facility]) Non HDL Cholesterol 184(H) mg/dL (calc) [facility] ([facility]) Comment: Target for non-HDL cholesterol is 30 mg/dL higher than LDL cholesterol target. Test Performed at: [facility] [address] [place] [address] BIANKA CAPONE DO,MPH Blood specimen (specimen) BLOOD SPECIMEN / Unknown 02/12/2015 8:22 AM CDT 02/12/2015 8:23 AM CDT Rox Hoover MD LAB - CHEMISTRY O RDERABLES [facility] ([facility]) from Last 3 Months or Most Recently Relevant to Health Maintenance Care Teams Pricing Consultant Relationship Specialty Start Date End Date Tammy Jean MD [address] [facility] [address] [place] [address] PCP - General 10/14/14
--- OUTSIDE RECORDS SUMMARY | 2024-08-16 00:05 | XMS_ITS | Clinical Summary ---
Author Organization [address] Address [address] [place] [phone] Care Team Providers Care Cte Teacher Name Role Phone Davy Reyes Primary Care Provider [phone] Allergies No known active allergies Medications polyethylene glycol (MIRALAX) 17 gram/dose powderIndicatio ns:constipation ,IBS-C Take 17 g by mouth daily. 1 capful daily Active magnesium citrate 100 mg tabletIndicatio ns:4-6 tablet daily Take by mouth. Active ferrous sulfate 143 mg (45 mg iron) tablet extended release Take by mouth daily Active oxyCODONE-aceta minophen (PERCOCET) 5-325 mg per tabletIndicatio ns:Pain Take 1-2 tablets by mouth every 4 (four) hours as needed for pain 20 tablet 11/04/2019 Active docusate sodium (COLACE) 100 mg capsuleIndicati ons:constipatio n Take 1 capsule (100 mg total) by mouth 2 (two) times a day with a glass of water 30 capsule 11/04/2019 Active Active Problems Problem Noted Date Diagnosed Date Hemorrhoids 10/17/2019 Overview (10/17/2019): Added automatically from request for surgery [id number] Left lower quadrant pain 09/19/2017 Assessment & Plan (09/19/2017 1:49 PM CDT): Possibly 20 yrs opf LLQ cramping, unpredictable, variable duration, related to lifelong constipation and some relief with bm. CT 2001 presumably for this pain. Laparoscopy at [place] for the pain. No systemic sx/signs. Miralax daily. No dietary fiber. Will add fresh fruit to every meal, continue the miralax and proceed with colonoscopy. Surgical History Surgery Date Site/Laterality Comments CERVICAL BIOPSY W/ LOOP ELEC TRODE EXCISION 05/15/2005 - 05/14/2006 HEMORRHOID SURGERY 11/04/2019 Medical History Medical History Date Comments Irritable bowel syndrome Motion sickness Hyperlipidemia Family History Medical History Relation Name Comments Heart attack Brother Hypertension Brother Hypertension Father Hypertension Mother Relation Name Status Comments Brother Father Mother Social History Tobacco Use Types Packs/Day Years Used Date Smoking Tobacco: Never Smokeless Tobacco: Never Alcohol Use Standard Drinks/Week Comments Yes 0 (1 standard drink = 0.6 oz pure alcohol) 2-3 glasses of wine or beer weekly Comments No Sex and Gender Information Value Date Recorded Sex Assigned at Not on file Legal Sex Female 6:13 PM ROLLED GLASS CROSSCUTTER Gender Identity Not on file Sexual Orientation Not on file Obstetrics History Last Filed Vital Signs Vital Sign Reading Time Taken Comments Blood Pressure 123/77 11/13/2019 2:00 PM CDT Pulse 96 11/13/2019 2:00 PM CDT Temperature 36.7 C (98 F) 11/13/2019 2:00 PM CDT Respiratory Rate 20 11/04/2019 2:44 PM CDT Oxygen Saturation 99% 11/04/2019 2:00 PM CDT Inhaled Oxygen Concentration - - Weight 60.3 kg (132 lb 14.4 oz) 11/13/2019 2:00 PM CDT Height 160 cm (5' 3 ) 11/13/2019 2:00 PM CDT Body Mass Index 23.54 11/13/2019 2:00 PM CDT Plan of Treatment Not on file Insurance [facility] H[facility] Advance Directives For more information, please contact: [phone] * Full Code (Latest Code Status on File) Date Activated Date Inactivated Comments 10/30/2017 8:56 AM 10/30/2017 12:36 PM Care Teams Cte Teacher Relationship Specialty Start Date End Date Davy Reyes PA [address] [place] [address] PCP - General Family Practice 08/31/17
--- OUTSIDE RECORDS SUMMARY | 2024-08-16 00:05 | XMS_ITS | Referral Summary ---
Author Organization [address] Address [address] [place] [phone] Care Team Providers Care Hassock Maker Name Role Phone Davy Reyes Primary Care Provider [phone] Allergies No known active allergies Medications polyethylene [...] (10/17/2019): Added automatically from request for surgery [id number] Left lower quadrant pain 09/19/2017 Assessment & Plan (09/19/2017 1:49 PM CDT): Possibly 20 yrs opf LLQ cramping, unpredictable, variable duration, related to lifelong constipation and some relief with bm. CT 2001 presumably for this pain. Laparoscopy at [place] for the pain. No systemic sx/signs. Miralax daily. No dietary fiber. Will add fresh fruit to every meal, continue the miralax and proceed with colonoscopy. Social History Tobacco Use Types Packs/Day Years Used Date Smoking Tobacco: Never Smokeless Tobacco: Never Alcohol Use Standard Drinks/Week Comments Yes 0 (1 standard drink = 0.6 oz pure alcohol) 2-3 glasses of wine or beer weekly Comments No Sex and Gender Information Value Date Recorded Sex Assigned at Not on file Legal Sex Female 6:13 PM ASSISTANT SURVEYOR Gender Identity Not on file Sexual Orientation [...] Plan of Treatment Not on file Insurance [facility] H[facility]/PPO Address: [facility] [id number] DEENA Cook [id number] Advance Directives For more information, please contact: [phone] * Full Code (Latest Code Status on File) Date Activated Date Inactivated Comments 10/30/2017 8:56 AM 10/30/2017 12:36 PM Care Teams Hassock Maker Relationship Specialty Start Date End Date Davy Reyes PA [address] [place] [address] PCP - General Family Practice 08/31/17
--- OUTSIDE RECORDS SUMMARY | 2024-08-16 00:06 | XMS_ITS | Encounter Summary ---
Author Organization [facility] Address [address] [place] [address] Care Team Providers Care Rn Plasma Center Name Role Phone Yohannes Gonsales MD Primary Care Provider Yudi Padilla Unavailable [phone] Shayla Bermudez DATABASE ENGINEER Unavailable Unavailable Encounter Details Date Type Department Care Team (Late st Contact Info) Description 07/26/2022 [employer] Message [employer] [facility] [address] [place] [phone] [employer], [facility] Provider Normal monitor Social History Tobacco Use Types Packs/Day Years Used Date Smoking Tobacco: Never Smokeless Tobacco: Never Alcohol Use Standard Drinks/Week Comments Yes 0 (1 standard drink = 0.6 oz pur e alcohol) occasional Comments Unknown Sex and Gender Information Value Date Recorded Sex Assigned at Female 06/26/2024 2:10 PM CLINICAL RESEARCH MANAGEMENT ASSOCIATE Legal Sex Female 12:37 PM CDT Gender Identity Not on file Sexual Orientation Not on file documented as of this encounter Plan of Treatment Not on file documented as of this encounter Visit Diagnoses Not on filedocumented in this encounter Care Teams Rn Plasma Center Relationship Specialty Start Date End Date Yohannes Gonsales MD [address] [place] [phone] PCP - General FAMILY PRACTICE 12/04/20 Yudi Padilla FNP [address] [place] [phone] Referring Physician NURSE PRACTITIONER 12/10/20 Shayla Bermudez NP [address] [place] [address] EP Ore Crushing Dust Collector Nurse Practitioner [facility] 12/10/20 documented as of this encounter
[2024-08-16] MEDS: KETOROLAC 15 MG/ML VIAL (*BKC) IV PUSH ×2 (09:30→12:53)
[2024-08-16] MEDS: ACETAMINOPHEN 500 MG TABLET 1000 MG PO ×2 (09:30→18:07)
--- NOTE | 2024-08-16 10:03 | P.HP_ITS ---
H&P: HPI History of Present Illness Date/Time: 08/16/24 10:03 Chief Complaint: Heavy periods Narrative: 39 y/o with heavy, painful menses and a fibroid uterus. Her has had a vasectomy and she has completed her childbearing. She has tried a combined oral contraceptive, as well as a progestin containing IUD. Recent ultrasound shows a 5.6 x 4.8 x 3.4 cm anterior uterine fibroid. She is intere sted in definitive management with hysterectomy. Endometrial sampling in the office was benign. Review of Systems Review of Systems: All systems reviewed & are unremarkable except as noted in HPI and below PMFSH Past Medical History Medical History History of nephrolithiasis Surgical History Surgical History History of D&C Family History Family History Mother Patient's mother is in good health Hypertension Family history of elevated blood lipids Father Patient's father is in good health Hypertension Sibling Patient's sister is in good health Patient's brother is in good health Grandparent Diabetes mellitus Social History Social History Smoking status: Never smoker Second hand tobacco smoke exposure: No Alcohol intake: current Alcohol use details: socially Substance use: never Substance use type: does not use Do You Feel Safe in your Home?: Yes Lack of Transportation: No Lack of Food: Never True Current Housing: I Have Housing Concerned About Future Housing: No Difficulty Paying Gas/Electric Bills: No Difficulty Paying for Meds: No Currently Unemployed: No Education: High School Diploma/GED Difficulty w/ Childcare or Family Care: No Living arrangements: with family Spiritual care concerns: No Meds Home Medications and Allergies Home Medications ?Medication ?Instructions ?Recorded ?Confirmed ?Type norgestimate-ethinyl estradiol 1 tablet PO DAILY 08/05/24 08/16/24 History 0.18mg/0.215mg/0.25mg-0.035mg(28)tablet (Tri-Sprintec (28)) tirzepatide 15 mg/0.5 mL 30 mg subcut .Biweekly 08/05/24 08/16/24 History subcutaneous pen injector (Mounjaro) Allergies Allergy/AdvReac Type Severity Reaction Status Date / Time No Known Allergies Allergy Verified 08/16/24 08:56 Vital Signs Vital Signs - 24 hr 08/16/24 08:57 Temperature 36.9 C Pulse Rate 80 Respiratory Rate 16 Blood Pressure 142/90 H Pulse Oximetry 100 Oxygen Delivery Room Air Exam Const: Orientation/consciousness: patient oriented x3 Other: Well-developed, well-nourished female in no acute distress. Neck: Thyroid: thyroid normal Lymphatic: no lymphadenopathy noted (in neck, axilla or inguinal nodes) Resp: Effort & Inspection: normal respiratory effort Auscultation: clear to auscultation bilaterally Cardio: Rate: regular rate Rhythm: regular rhythm Heart sounds: S1 normal heart sound present and S2 normal heart sound present GI: Other: ABD: Soft, nontender, nondistended. No guarding or rebound tenderness. No hepatosplenomegaly. : General: Yes no CVA tenderness Other: External genitalia: normal female hair distribution, without lesion. Urethral meatus: no lesion, non prolapsed. Bladder: no mass, nontender Vagina: well-estrogenized, without lesion or discharge. No cystocele or rectocele. Cervix: no lesion or discharge. Uterus: enlarged and globular, larger on the left. Adnexa: no mass or tenderness. Anus/perineum: no lesions, nontender Back/Spine/Pelvis: Back: no CVA tenderness Skin: General skin exam: normal color and no rashes or lesions noted Neuro: General: patient oriented x3 Extrem: Other: Extremities: nontender with no edema Psych: Mental Status: mental status grossly normal Affect: normal affect Assessment and Plan Assessment and plan (1) Menometrorrhagia: Code(s): N92.1 - Excessive and frequent menstruation with irregular cycle Status: Acute Assessment and Plan: A: Symptomatic fibroid uterus. P: We have reviewed medical as well as surgical management. She prefers the latter. I have offered her robotic assisted total vaginal hysterectomy with bilateral salpingectomies. She understands risks of surgery to include risks of anesthesia, risks of pain, infection, bleeding, blood products, thromboembolic phenomena and damage to adjacent structures such as bowel, bladder, ureters, blood vessels and nerves. She understands all these risks and elects to proceed with surgery. (2) Dysmenorrhea: Code(s): N94.6 - Dysmenorrhea, unspecified Status: Acute (3) Fibroid uterus: Code(s): D25.9 - Leiomyoma of uterus, unspecified Status: Acute
[2024-08-16 10:04] LABS: BEDSIDEPREGUCG Negative (Negative)
[2024-08-16] MEDS: LACTATED RINGERS 1,000 ML 30 ML IV CONT ×3 (11:00→13:53)
--- NOTE | 2024-08-16 11:08 | WPDHPUPDATE1 ---
History and Physical Update Update Date/Time: 08/16/24 11:08 History and Physical has been reviewed, including an updated exam of the patient. There are NO changes in the patient's condition. Risks, benefits, and alternatives have been discussed and questions answered. Patient agrees to proceed with procedure.
--- NOTE | 2024-08-16 11:32 | P.PNAN_ITS ---
Anes - Initial Pre Proc Eval Procedure: Operation Date: 08/16/24 10:30 Proposed Procedures p Robotic Assisted Total Vaginal Hysterectomy with Bilateral Salpingectomy - Yrn Wiggins MD Date/Time: 08/16/24 11:32 Surgeon: Yrn Wiggins MD Pre Op Diagnosis: Pelvic Pain, Irg Bleed, Dyspareunia Patient Data Age: 39 Gender: F Height: 1.6 m Weight: 54.6 kg Last Vital Signs Temp 98.4 F 08/16/24 08:57 Pulse 80 08/16/24 08:57 Resp 16 08/16/24 08:57 BP 142/90 H 08/16/24 08:57 Pulse Ox 100 08/16/24 08:57 O2 Del Method Room Air 08/16/24 08:57 Allergies Allergy/AdvReac Type Severity Reaction Status Date / Time No Known Allergies Allergy Verified 08/16/24 08:56 Home Medications ?Medication ?Instructions ?Recorded ?Confirmed ?Type norgestimate-ethinyl estradiol 1 tablet PO DAILY 08/05/24 08/16/24 History 0.18mg/0.215mg/0.25mg-0.035mg(28)tablet (Tri-Sprintec (28)) tirzepatide 15 mg/0.5 mL 30 mg subcut .Biweekly 08/05/24 08/16/24 History subcutaneous pen injector (Mounjaro) Laboratory Tests 08/16/24 08/16/24 09:08 10:03 POC Urine HCG, Qual Negative (Negative) Blood Type O Positive Antibody Screen Negative Patient hx anesthesia problems: none Family hx anesthesia problems: none Results Review: All pre-operative results and documents have been reviewed as part of the pre- operative evaluation. FORMERLY [facility], [facility] Past Medical History Medical History History of nephrolithiasis Surgical History Surgical History History of D&C Family History Family History Mother Patient's mother is in good health Hypertension Family history of elevated blood lipids Father Patient's father is in good health Hypertension Sibling Patient's sister is in good health Patient's brother is in good health Grandparent Diabetes mellitus Social History Social History Smoking status: Never smoker Second hand tobacco smoke exposure: No Alcohol intake: current Alcohol use details: socially Substance use: never Substance use type: does not use Do You Feel Safe in your Home?: Yes Lack of Transportation: No Lack of Food: Never True Current Housing: I Have Housing Concerned About Future Housing: No Difficulty Paying Gas/Electric Bills: No Difficulty Paying for Meds: No Currently Unemployed: No Education: High School Diploma/GED Difficulty w/ Childcare or Family Care: No Living arrangements: with family Spiritual care concerns: No Anes - Eval Final PreProcedure Day of Procedure 08/16/24 11:32 Patient weight: normal Heart: regular rate and rhythm Lungs: clear to auscultation Airway: Mallampati scale class II Neurological: alert and oriented Last oral intake: >/= 8 hours ASA classification: II Emergent: no Anesthetic plan: proceed Anesthesia type and monitoring: general ETT and standard monitoring Results Review: All pre-operative results and documents have been reviewed as part of the pre- operative evaluation. Informed Consent: The patient's anesthetic plan and its attendant risks and benefits were discussed with the patient/family/POA. Questions were solicited and answers provided to the satisfaction of the patient/family/POA.
[2024-08-16] MEDS: ceFAZolin 2 GM/D5W 50 ML 2 GM/50 ML BAG IVPB (11:44)
--- NOTE | 2024-08-16 12:58 | P.OP_ITS ---
Procedure Note - Detailed Date of Procedure 08/16/24 Pre-op Diagnosis Menometrorrhagia Dysmenorrhea Fibroid uterus Post-op Diagnosis Same Procedure Performed Robotic assisted total vaginal hysterectomy with bilateral salpingectomies. Surgeon Yrn Wiggins MD Anesthesia General Findings Enlarged, fibroid uterus. Normal-appearing tubes and ovaries bilaterally. Normal-appearing bilateral round and uterosacral ligaments, normal-appearing anterior and posterior cul de sac. Description of Procedure The patient was taken to the operating room where general endotracheal anesthesia was administered. She was prepared and draped in the usual sterile fashion in the dorsal lithotomy position. The bladder was drained with Mallory catheter. The cervix was visualized and the anterior lip was grasped using a single-tooth tenaculum. The cervix was gently dilated using Hegar dilators. The YURIY 2 uterine manipulator was then placed and the tenaculum was removed. Gloves were changed and attention was turned to the abdomen. A supraumbilical skin incision was made with the scalpel. The Veress needle was advanced and pneumoperitoneum was administered using carbon dioxide gas. The bladeless trocar was then advanced. Intraperitoneal placement was confirmed using the laparoscope. Lateral ports and an education assistant port were all placed using bladeless trocars under direct laparoscopic visualization. She was placed in Trendelenburg position and the patient cart was docked. I assumed the console. The ureters were visualized bilaterally. The round ligament on the right was divided. The Fallopian tube was dissected away from the ovary. The uteroovarian ligament was divided. The broad ligament was divided, skeletonizing the uterine artery on the right. The bladder was reflected away. The left side was similarly dissected. Colpotomy was performed circumferentially. The specimen was removed and passed off to be sent to pathology. The vaginal cuff was reapproximated using 0 Vicryl in interrupted [id number] fashion. The pelvis was irrigated copiously using warmed normal saline. Rigorous hemostasis was assured. Suricel powder was applied to the vaginal cuff. The pedicles were inspected once again. The ports were then withdrawn and the gas was allowed to escape. The skin incisions were reapproximated using 4 0 Monocryl in interrupted subcuticular fashion. Dermaflex was applied externally. Sponge, lap, needle and instrument counts were correct. The patient was awakened and taken to the recovery room in stable condition. I was present and scrubbed through the entire procedure. Implants None Estimated Blood Loss 25 Drains Yes (Mallory) Packing No Pathology Yes (Uterus, cervix, bilateral Fallopian tubes) Complications None Condition Stable Disposition PACU
--- NOTE | 2024-08-16 13:02 | PM.DS ---
DS: Admitting Diagnosis Discharge Date 08/17/2024 <Davy Camilo MD - Last Filed: 08/17/24 07:04> Admitting Diagnosis Menometrorrhagia Dysmenorrhea Fibroid uterus <Yrn Wiggins MD - Last Filed: 08/19/24 08:46> DS: Discharge Diagnosis Discharge Diagnosis (1) Menometrorrhagia: Code(s): N92.1 - Excessive and frequent menstruation with irregular cycle <Yrn Wiggins MD - Last Filed: 08/19/24 08:46> Status: Acute <Yrn Wiggins MD - Last Filed: 08/19/24 08:46> (2) Dysmenorrhea: Code(s): N94.6 - Dysmenorrhea, unspecified <Yrn Wiggins MD - Last Filed: 08/19/24 08:46> Status: Acute <Yrn Wiggins MD - Last Filed: 08/19/24 08:46> (3) Fibroid uterus: Code(s): D25.9 - Leiomyoma of uterus, unspecified <Yrn Wiggins MD - Last Filed: 08/19/24 08:46> Status: Acute <Yrn Wiggins MD - Last Filed: 08/19/24 08:46> DS: Summary Hospital Course Hospital Course: She underwent robotic assisted TVH-BS. Postoperatively she did well. She voided and tolerated a regular diet. Pain was well-controlled. She was able to go home on POD1. <Yrn Wiggins MD - Last Filed: 08/19/24 08:46> Time Spent with Patient Time attestation: Total time spent providing and/or coordinating discharge services: <Yrn Wiggins MD - Last Filed: 08/19/24 08:46> DS: Data Data Completed and Pending Pending studies at discharge: Pending at discharge 08/16/24 12:34 Surgical [PTH] Routine <Yrn Wiggins MD - Last Filed: 08/19/24 08:46> Labs on day of discharge: Labs from last 24 hours 08/16/24 08/16/24 10:03 09:08 POC Urine HCG, Qual Negative Blood Type O Positive Antibody Screen Negative <Yrn Wiggins MD - Last Filed: 08/19/24 08:46> Discharge Plan Discharge Patient Disposition: Home <Yrn Wiggins MD - Last Filed: 08/19/24 08:46> Discharge Instructions: Nothing in the vagina for 6 weeks. Call or return if temperature above 100.4? F, increased abdominal pain, increased vaginal bleeding or any new problems. <Yrn Wiggins MD - Last Filed: 08/19/24 08:46> Patient Instructions: Laparoscopic Hysterectomy (DC) <Yrn Wiggins MD - Last Filed: 08/19/24 08:46> Patient Language: Egyptian <Yrn Wiggins MD - Last Filed: 08/19/24 08:46> Stand Alone Forms: General Discharge Instructions <Yrn Wiggins MD - Last Filed: 08/19/24 08:46> Follow-up/Referrals: Yrn Wiggins MD [Physician] - 2 Weeks <Yrn Wiggins MD - Last Filed: 08/19/24 08:46> Discharge Medications: New oxycodone-acetaminophen [Percocet] 5-325 mg tablet 1 - 2 tablet PO Q6H PRN (Reason: pain) Qty: 30 0RF Continued Mounjaro 15 mg/0.5 mL pen injector 30 mg subcut .Biweekly Patient Comments: weightloss Discontinued norgestimate-ethinyl estradiol [Tri-Sprintec (28)] 0.18/0.215/0.25 mg-35 mcg (28) tablet 1 tablet PO DAILY <Yrn Wiggins MD - Last Filed: 08/19/24 08:46>
[2024-08-16] MEDS: fentaNYL CITRATE INJ (*CRX) 100 MCG/2 ML VIAL 25 MCG IV PUSH ×4 (13:30→14:15)
[2024-08-16] MEDS: ONDANSETRON INJ 4 MG/2 ML VIAL IV PUSH (13:32)
[2024-08-16] MEDS: diphenhydrAMINE HCl INJ 50 MG/ML VIAL 25 MG IV PUSH (13:38)
[2024-08-16] MEDS: SCOPOLAMINE 1 MG PATCH 1 PATCH TRANSDERM (13:52)
[2024-08-16] MEDS: HALOPERIDOL LACTATE 5 MG/ML VIAL IV PUSH ×2 (13:55→14:19)
[2024-08-16] MEDS: HYDROmorphone HCL INJ (*CRX) 1 MG/ML SYR 0.5 MG IV PUSH ×2 (14:18→14:26)
--- NOTE | 2024-08-16 15:13 | PC.NURSE ---
This patient, Shayla Saunders, was received from PACU via stretcher on 08/16/24 at 1513. Patient/family oriented to unit policies and routines.
[2024-08-16] MEDS: DEXTROSE 5%/0.45% SOD CHL 1,000 ML 125 ML IV CONT (15:29)
[2024-08-16] MEDS: SIMETHICONE 80 MG TAB.CHEW PO (18:06)
[2024-08-16] MEDS: KETOROLAC 30 MG/ML VIAL (*BKC) IV PUSH (18:07)
[2024-08-16] MEDS: DOCUSATE SODIUM 100 MG CAPSULE PO (18:07)
[2024-08-16] MEDS: oxyCODONE HCL (*CRX) 5 MG TAB IR PO (20:25)
[2024-08-16] MEDS: ENOXAPARIN 40 MG/0.4 ML SYRINGE SUB-Q (20:26)
[2024-08-17] MEDS: KETOROLAC 30 MG/ML VIAL (*BKC) IV PUSH ×2 (00:36→08:04)
[2024-08-17] MEDS: ACETAMINOPHEN 500 MG TABLET 1000 MG PO ×2 (00:36→08:04)
[2024-08-17 01:00] VITALS: BP 91/53; PULSE 56; RESP 18; TEMP 36.9; O2SAT 100
[2024-08-17 04:00] VITALS: BP 90/58; PULSE 57; RESP 18; TEMP 36.9; O2SAT 18
[2024-08-17] MEDS: oxyCODONE HCL (*CRX) 5 MG TAB IR PO ×2 (04:22→10:35)
[2024-08-17 05:24] LABS: Basophils Percent Auto 0.1 % (0.2-1.2); Eosinophils Percent Auto 0.1 % (0-4.4); Hematocrit 35.1 % (37.0-47.0); Hemoglobin 11.3 g/dL (12.0-15.0); Immature Granulocyte Absolute 0.02 K/mm3 (0.00-0.031); Immature Granulocyte Percent A 0.3 % (0-0.5); Lymphocytes Absolute Auto 0.82 K/mm3 (0.9-3.2); Lymphocytes Percent Auto 10.6 % (18.3-44.2); Mean Corpuscular HGB Conc 32.2 g/dl (32-36); Mean Corpuscular Hemoglobin 29.1 pg (26-34); Mean Corpuscular Volume 90.5 fl (80-100); Mean Platelet Volume 11.5 fl (7.4-10.4); Monocytes Absolute Auto 0.5 K/mm3 (0.1-0.6); Monocytes Percent Auto 6.3 % (2.6-8.5); Neutrophils Absolute Auto 6.4 K/mm3 (1.3-6.7); Neutrophils Percent Auto 82.6 % (45.5-73.1); Platelet Count Result 181 k/mm3 (150-375); Red Blood Count 3.88 M/mm3 (4.2-5.4); White Blood Count 7.7 K/mm3 (4.5-10.0)
--- NOTE | 2024-08-17 07:05 | PM.GYNPNOP ---
DAYCARE DIRECTOR - A/P Assessment and plan (1) Menometrorrhagia: Code(s): N92.1 - Excessive and frequent menstruation with irregular cycle Status: Acute (2) Dysmenorrhea: Code(s): N94.6 - Dysmenorrhea, unspecified Status: Acute (3) Fibroid uterus: Code(s): D25.9 - Leiomyoma of uterus, unspecified Status: Acute Plan home Postoperative Procedures: Procedures Operation Date: 08/16/24 10:30 Actual Procedure Side Surgeon p Robotic Assisted Total Vaginal Hysterectomy with Bilateral Salpingectomy Bilateral Yrn Wiggins MD Time Spent With Patient Time: Total time spent is greater than 50% in coordination of care (as documented) at patient's floor/unit and/or counseling patient: Time with patient: less than 15 minutes DAYCARE DIRECTOR- PN:Subj Post-Op Subjective Date/time seen: 08/17/24 07:05 Subjective: patient reports feeling better, patient has no complaints, patient desires discharge, pain is well controlled and patient is tolerating oral intake Exam Const: General: cooperative, healthy appearing and comfortable Nutritional Appearance: average body habitus Orientation/consciousness: oriented to person, oriented to place, oriented to time and patient oriented x3 Other: Well-developed, well-nourished female in no acute distress. Neck: Thyroid: thyroid normal Lymphatic: no lymphadenopathy noted (in neck, axilla or inguinal nodes) Resp: Effort & Inspection: normal respiratory effort Auscultation: clear to auscultation bilaterally Cardio: Rate: regular rate Rhythm: regular rhythm Heart sounds: S1 normal heart sound present and S2 normal heart sound present GI: Inspection: normal to inspection and incision (cdi) Other: ABD: Soft, nontender, nondistended. No guarding or rebound tenderness. No hepatosplenomegaly. : General: Yes no CVA tenderness Other: External genitalia: normal female hair distribution, without lesion. Urethral meatus: no lesion, non prolapsed. Bladder: no mass, nontender Vagina: well-estrogenized, without lesion or discharge. No cystocele or rectocele. Cervix: no lesion or discharge. Uterus: enlarged and globular, larger on the left. Adnexa: no mass or tenderness. Anus/perineum: no lesions, nontender Back/Spine/Pelvis: Back: no CVA tenderness Skin: General skin exam: normal color and no rashes or lesions noted Neuro: General: patient oriented x3 Extrem: Other: Extremities: nontender with no edema Psych: Mental Status: mental status grossly normal Affect: normal affect DAYCARE DIRECTOR - PN: Obj Data Vital Signs Vital Signs: Vital Signs - 24 hr 08/16/24 08:57 08/16/24 13:12 08/16/24 13:15 Temperature 98.4 F 97.0 F L Pulse Rate 80 81 78 Respiratory Rate 16 13 13 Blood Pressure 142/90 H 103/50 L 122/81 Pulse Oximetry 100 100 100 Oxygen Delivery Room Air Simple Face Mask Simple Face Mask Oxygen Flow Rate 8 8 08/16/24 13:30 08/16/24 13:45 08/16/24 14:00 Temperature Pulse Rate 93 87 71 Respiratory Rate 13 16 16 Blood Pressure 126/78 136/70 132/82 Pulse Oximetry 100 100 100 Oxygen Delivery Room Air Room Air Room Air Oxygen Flow Rate 08/16/24 14:15 08/16/24 14:30 08/16/24 14:45 Temperature 97.0 F L Pulse Rate 80 78 68 Respiratory Rate 16 12 12 Blood Pressure 121/73 105/63 111/65 Pulse Oximetry 98 98 97 Oxygen Delivery Room Air Room Air Room Air Oxygen Flow Rate 08/16/24 14:55 08/16/24 15:17 08/16/24 20:25 Temperature 98.2 F Pulse Rate 76 86 Respiratory Rate 12 14 Blood Pressure 106/60 125/72 Pulse Oximetry 94 99 Oxygen Delivery Room Air Room Air Oxygen Flow Rate 08/16/24 20:25 08/17/24 01:00 08/17/24 04:00 Temperature 97.8 F 98.5 F 98.4 F Pulse Rate 67 56 L 57 L Respiratory Rate 18 18 18 Blood Pressure 95/56 L 91/53 L 90/58 L Pulse Oximetry 99 100 18 L Oxygen Delivery Oxygen Flow Rate Intake/Output Intake/Output: Intake & Output 08/14/24 08/15/24 08/16/24 08/17/24 23:59 23:59 23:59 23:59 Intake Total 2525 Output Total 750 2150 Balance 1775 -2150 Meds/Results Medications: Active Medications Generic Name Dose Route Start Last Admin Trade Name Freq PRN Reason Stop Dose Admin Acetaminophen 1,000 mg 08/16/24 18:00 08/17/24 00:36 Acetaminophen 500 Mg Tablet PO 1,000 mg Q6HR RENÉ Administration Docusate Sodium 100 mg 08/16/24 17:00 08/16/24 18:07 Docusate Sodium 100 Mg Capsule PO 100 mg BID RENÉ Administration Enoxaparin Sodium 40 mg 08/16/24 21:00 08/16/24 20:26 Enoxaparin 40 Mg/0.4 Ml Syringe SUB-Q 40 mg Q24H RENÉ Administration Dextrose/Sodium Chloride 1,000 mls @ 125 mls/hr 08/16/24 15:04 08/16/24 15:29 Dextrose 5% Sodium Chloride 0.45% IV CONT 125 mls/hr .Q8H RENÉ Administration Ibuprofen 600 mg 08/17/24 12:00 Ibuprofen 600 Mg Tablet PO Q6HR [facility] Morphine Sulfate 4 mg 08/16/24 15:04 Morphine Sulfate (*Crx) 4 Mg/Ml Inj IV PUSH Q4H PRN Breakthrough Pain Rated 7-10 or NPO Naloxone HCl 0.1 mg 08/16/24 15:04 Naloxone Hcl 0.4 Mg/Ml Vial IV PUSH Q2M PRN Respiratory rate less than 10 Ondansetron HCl 4 mg 08/16/24 15:04 Ondansetron Inj 4 Mg/2 Ml Vial IV PUSH Q6H PRN Nausea And Vomiting Oxycodone HCl 5 mg 08/16/24 15:04 08/17/24 04:22 Oxycodone Hcl (*Crx) 5 Mg Tab Ir PO 5 mg Q4H PRN Administration Pain Rated 4-6 Oxycodone HCl 10 mg 08/16/24 15:04 Oxycodone Hcl (*Crx) 5 Mg Tab Ir PO Q6H PRN Pain Rated 7-10 Simethicone 80 mg 08/16/24 17:00 08/16/24 18:06 Simethicone 80 Mg Tab.Chew PO 80 mg TIDWM RENÉ Administration Labs 08/17/24 04:10 Labs: Laboratory Results - last 24 hr 08/16/24 08/16/24 08/17/24 09:08 10:03 04:10 WBC 7.7 RBC 3.88 L Hgb 11.3 L Hct 35.1 L MCV 90.5 MCH 29.1 MCHC 32.2 RDW 13.0 Plt Count 181 MPV 11.5 H Immature Gran % (Auto) 0.3 Neut % (Auto) 82.6 H Lymph % (Auto) 10.6 L [place] % (Auto) 6.3 Eos % (Auto) 0.1 Baso % (Auto) 0.1 L Lymph # (Auto) 0.82 L [place] # (Auto) 0.5 Eos # (Auto) 0.0 Baso # (Auto) 0.0 Abs Immat Gran (auto) 0.02 Absolute Neuts (auto) 6.4 Absolute Nucleated RBC 0.000 Nucleated RBC % 0.0 POC Urine HCG, Qual Negative Blood Type O Positive Antibody Screen Negative
[2024-08-17 07:30] VITALS: BP 94/49; PULSE 62; RESP 18; TEMP 37.2; O2SAT 99
[2024-08-17] MEDS: DOCUSATE SODIUM 100 MG CAPSULE PO (08:04)
[2024-08-17] MEDS: SIMETHICONE 80 MG TAB.CHEW PO (08:04)
== END 2024-08-17 12:12 | disposition home or self-care (01) ==
LOC: ANHSURGERY 12:54 → ANHOB2 15:06
PROVIDERS: PCP Family Medicine; Visit Provider Obstetrics & Gynecology
PROC: (CPT 58552; principal; 2024-08-16 10:30)
DX: N92.1 Excessive and frequent menstruation with irregular cycle (principal); D25.9 Leiomyoma of uterus, unspecified; N94.6 Dysmenorrhea, unspecified
CPT/HCPCS: 58552; S2900; 36415; 85025; 86850; 86900; 86901; 88307; 99199; A9270; J0690; J1100; J1171; J1200; J1630; J1650; J1885; J2003; J2250; J2405; J2704; J3010; J7030; J7120